=== PATIENT | male | born 1965 | race Caucasian/White ===

== ENCOUNTER 2016-10-25 07:50 | Inpatient (IN) | payer OTHER ==
[2016-10-25] VITALS (9 sets, daily range): BP systolic 102–127; BP diastolic 64–75
[~2016-10-25] VITALS: Ht 185.4 cm; Wt 92.2 kg
[~2016-10-25 07:50] MED LIST: DEXA2TAB PO; DEXA4TAB PO; IBUP-1222 PO; MORP15TA39 PO; OMEP40CA6 PO; OXYC1TAB7 PO
[2016-10-25] MEDS ORDERED: PANTOPRAZOLE 80 MG in SODIUM CHLORIDE 0.9% 50 ML IVPB ONE (08:26)
[2016-10-25] MEDS ORDERED: SODIUM CHLORIDE 0.9% 1,000 ML IV ONE (08:26)
[2016-10-25] MEDS ORDERED: PANTOPRAZOLE 80 MG in SODIUM CHLORIDE 0.9% 100 ML IV SCH (08:26)
[2016-10-25] MEDS ORDERED: CLIN300C93 PO (08:29)
[2016-10-25] MEDS ORDERED: OXYC-229 PO (08:29)
[2016-10-25] MEDS ORDERED: SODIUM CHLORIDE FLUSH 10ML SYR IVF ONE (08:30)
[2016-10-25] MEDS ORDERED: ACETAMINOPHEN 325 MG TABLET PO ONE (08:30)
[2016-10-25] MEDS ORDERED: SODIUM CHLORIDE 0.9% 1,000ML IVBOLUS ONE (08:30)
[2016-10-25 09:04] LABS: HEMOGLOBIN 6.4 g/dL (13.7-18.0)
[2016-10-25 09:07] LABS: ASPARTATE AMINO TRANSFERASE 23 U/L (15-37); BLOOD UREA NITROGEN 20 mg/dL (7-18)
[2016-10-25 09:09] LABS: DIFF TOTAL CELLS COUNTED 100 CELL DIFF
[2016-10-25 09:11] LABS: ANISOCYTOSIS 2+; OVALOCYTES 1+; VERIFY COUNTS? YES
[2016-10-25 09:12] LABS: MICROCYTOSIS 1+
[2016-10-25 09:17] LABS: POLYCHROMASIA 1+
[2016-10-25] MEDS ORDERED: ACETAMINOPHEN 325 MG TABLET ONE (09:30)
[2016-10-25] MEDS ORDERED: PIPERACILLIN/TAZO/PMX 3.375GM 50 ML ONE (10:35)
[2016-10-25] MEDS: PIPERACILLIN/TAZO/PMX 3.375GM 50 ML IV ONE ×2 (10:42→11:08)
[2016-10-25] MEDS ORDERED: OXYcodone/APAP 10/325MG TABLET PO PRN (11:00)
[2016-10-25] MEDS ORDERED: ACETAMINOPHEN 325 MG TABLET PO PRN (11:00)
[2016-10-25] MEDS ORDERED: POLYETHYLENE GLYCOL 17 GM PACKET PO PRN (11:00)
[2016-10-25] MEDS ORDERED: HYDROmorphone 2 MG/ML, 1ML IV PRN (11:00)
[2016-10-25] MEDS ORDERED: ONDANSETRON 2MG/ML, 2ML IVP PRN (11:00)
[2016-10-25] MEDS ORDERED: DOCUSATE 100 MG CAPSULE PO PRN (11:00)
[2016-10-25] MEDS ORDERED: LORazepam 2 MG/ML, 1ML IVPush PRN (11:00)
[2016-10-25] MEDS ORDERED: CEFTRIAXONE PMX 2GM/50ML 50 ML ONE (11:40)
[2016-10-25] MEDS: CEFTRIAXONE PMX 2GM/50ML 50 ML IV SCH (11:54)
[2016-10-25] MEDS: AZITHROMYCIN 500 MG in SODIUM CHLORIDE 0.9% 250 ML IV SCH (12:13)
[2016-10-25] MEDS: PANTOPRAZOLE 80 MG in SODIUM CHLORIDE 0.9% 100 ML IV SCH (19:50)
[2016-10-26] VITALS (10 sets, daily range): BP systolic 102–126; BP diastolic 69–83
[2016-10-26] MEDS: PANTOPRAZOLE 80 MG in SODIUM CHLORIDE 0.9% 100 ML IV SCH (05:10)
[2016-10-26 05:58] LABS: HEMOGLOBIN 6.8 g/dL (13.7-18.0)
[2016-10-26 06:12] LABS: ASPARTATE AMINO TRANSFERASE 26 U/L (15-37); BLOOD UREA NITROGEN 14 mg/dL (7-18)
[2016-10-26 06:27] LABS: DIFF TOTAL CELLS COUNTED 100 CELL DIFF
[2016-10-26 06:32] LABS: ANISOCYTOSIS 2+; HYPOCHROMIA 1+; MICROCYTOSIS 1+; OVALOCYTES 1+; POLYCHROMASIA 1+; VERIFY COUNTS? YES
[2016-10-26] MEDS ORDERED: PANTOPRAZOLE 40 MG IV IVP SCH (07:30)
[2016-10-26] MEDS ORDERED: PANTOPRAZOLE 80 MG in SODIUM CHLORIDE 0.9% 100 ML IV SCH (08:26)
[2016-10-26] MEDS ORDERED: FENTANYL PF 100 MCG/2ML ONE ×2 (09:53→10:59)
[2016-10-26] MEDS ORDERED: MIDAZOLAM 1 MG/ML, 5ML ONE (09:54)
[2016-10-26] MEDS: CEFTRIAXONE PMX 2GM/50ML 50 ML IV SCH (12:57)
[2016-10-26] MEDS: AZITHROMYCIN 500 MG in SODIUM CHLORIDE 0.9% 250 ML IV SCH (13:34)
[2016-10-26] MEDS: SUCRALFATE 1 GM/10 ML UDC PO SCH ×2 (16:57→20:24)
[2016-10-27 01:26] VITALS: BP 110/74
[2016-10-27 05:20] LABS: HEMOGLOBIN 8.8 g/dL (13.7-18.0)
[2016-10-27] MEDS: SUCRALFATE 1 GM/10 ML UDC PO SCH ×2 (05:25→12:01)
[2016-10-27 06:50] VITALS: BP 118/81
[2016-10-27] MEDS ORDERED: OMEP-110 PO (07:16)
[2016-10-27] MEDS ORDERED: CEFD300C2 PO (07:16)
[2016-10-27] MEDS ORDERED: DOXY100C2 PO (07:16)
[2016-10-27] MEDS ORDERED: AZIT250T PO (07:17)
[2016-10-27] MEDS ORDERED: SUCR1ORA2 PO (07:17)
[2016-10-27] MEDS ORDERED: OMEPRAZOLE 20 MG CAPSULE.DR PO SCH (07:30)
== END 2016-10-27 12:07 | disposition home or self-care (01) | DRG 377 ==
LOC: ED 09:09 → EDIP 09:48 → 4WST 15:57
PROVIDERS: ADMIT Internal Medicine
PROC: 0T9B70Z Drainage of Bladder with Drainage Device, Via Natural or Artificial Opening (ICD-10-PCS; principal; 2016-10-25)
PROC: 30233N1 Transfusion of Nonautologous Red Blood Cells into Peripheral Vein, Percutaneous Approach (ICD-10-PCS; 2016-10-25)
PROC: 0DBA8ZX Excision of Jejunum, Via Natural or Artificial Opening Endoscopic, Diagnostic (ICD-10-PCS; 2016-10-26)
DX: K28.4 Chronic or unspecified gastrojejunal ulcer with hemorrhage (principal); J18.9 Pneumonia, unspecified organism; E43 Unspecified severe protein-calorie malnutrition; D62 Acute posthemorrhagic anemia; C79.51 Secondary malignant neoplasm of bone; C43.9 Malignant melanoma of skin, unspecified; C79.31 Secondary malignant neoplasm of brain; K21.0 Gastro-esophageal reflux disease with esophagitis; Z87.891 Personal history of nicotine dependence; Z88.5 Allergy status to narcotic agent; Z92.3 Personal history of irradiation; Z68.26 Body mass index [BMI] 26.0-26.9, adult
CPT/HCPCS: 36415; 71010; 80053; 81003; 83605; 83690; 84145; 85018; 85025; 85610; 85730; 86850; 86900; 86923; 87040; 88305; 93005; 96365; 96366; J0456; J0696; J2250; J2543; J3010; C9113; J7030; J7050; P9016

== ENCOUNTER → 2016-11-20 | Outpatient (CLI) | payer OTHER ==
[~2016-11-20] MED LIST changes: +AZIT250T PO; +CEFD300C37 PO; +CLIN300C93 PO; +DOXY100C2 PO; +GADOBUTROL 7.5 MMOL/7.5 ML PFS ONE; +OMEP-110 PO; +OXYC-229 PO; +SUCR1ORA2 PO
== END | disposition home or self-care (01) ==
LOC: EDSTATUS 09-29 13:30 → RAD 09:52
PROVIDERS: ATTEND Radiology Radiation Oncology
DX: C79.31 Secondary malignant neoplasm of brain (principal)
CPT/HCPCS: 70553; A9585